=== PATIENT | male | born 1985 | race African-American/Black ===

== ENCOUNTER 2016-09-25 21:36 | Emergency (ER) | payer SELFPAY ==
[~2016-09-25] VITALS: Ht 177.8 cm; Wt 96.0 kg
[2016-09-25 23:18] VITALS: BP 142/94
[2016-09-25] MEDS ORDERED: LIDOCAINE HCL 1% 20ML VIAL (Pyxis) INJ INFIL ONE (23:45)
[2016-09-25] MEDS ORDERED: BACITRACIN ZINC OINT UDPKT TOP ONE (23:45)
[2016-09-26] MEDS ORDERED: ACETAMINOPHEN 325MG TABLET PO ONE ×2 (00:30→01:00)
== END 2016-09-26 01:01 | disposition home or self-care (01) ==
LOC: ER 21:37
DX: K51.90 Ulcerative colitis, unspecified, without complications (principal); I10 Essential (primary) hypertension
CPT/HCPCS: 10060; 99283; J3490; Z7610